=== PATIENT | male | born 1990 | race Caucasian/White ===

== ENCOUNTER 2017-06-08 01:43 | Emergency (ER) | payer BC, MEDICAID, OTHER ==
--- NOTE | 2017-06-08 02:07 | C.PDOC ---
History Of Present Illness 26 year old male who presents to the ER with a complaint of chest pain since 22: 00. Patient states it feels like "anxiety" and a "panic attack"; he reports he was at baseline before the onset. Denies fever or other complaints. no sob, n/v , abdominal pain, cough, ear pain, urinary changes. Time Seen by Provider: 06/08/17 01:56 Chief Complaint (Nursing): Chest Pain History Per: Patient History/Exam Limitations: no limitations Onset/Duration Of Symptoms: Hrs Current Symptoms Are (Timing): Still Present Associated Symptoms: denies: Nausea, Dyspnea Modifying Factors: None Exacerbating Factors: None Alleviating Factors: None Recent travel outside of the [place]: No Past Medical History Reviewed: Historical Data, Nursing Documentation, Vital Signs Vital Signs: Last Vital Signs Temp 98 F 06/08/17 04:15 Pulse 88 06/08/17 04:15 Resp 20 06/08/17 04:15 BP 126/73 06/08/17 04:15 Pulse Ox 96 06/08/17 04:15 - Medical History PMH: Sleep Apnea Surgical History: No Surg Hx Family History: States: Unknown Family Hx - Social History Hx Alcohol Use: Yes Hx Substance Use: No - Immunization History Hx Tetanus Toxoid Vaccination: Yes Hx Influenza Vaccination: No Hx Pneumococcal Vaccination: No Review Of Systems Constitutional: Negative for: Fever, Chills Cardiovascular: Positive for: Chest Pain Gastrointestinal: Negative for: Nausea, Vomiting, Diarrhea Psych: Positive for: Anxiety Physical Exam - Physical Exam Appears: Non-toxic Skin: Normal Color, Warm, Dry Head: Atraumatic, Normacephalic Oral Mucosa: Moist Chest: Symmetrical, No Tenderness Cardiovascular: Rhythm Regular, No Murmur Respiratory: Normal Breath Sounds, No Rales, No Rhonchi, No Wheezing Gastrointestinal/Abdominal: Soft, No Tenderness Neurological/Psych: Oriented x3, Normal Speech, Normal Cognition ED Course And Treatment - Laboratory Results Result Diagrams: 06/08/17 02:09 06/08/17 02:09 ECG: Interpreted By Me, Viewed By Me ECG Rhythm: Sinus Rhythm Interpretation Of ECG: No ST/T wave changes, PERC negative. Rate From EC O2 Sat by Pulse Oximetry: 97 Medical Decision Making Medical Decision Making: atypical cp - will eval for anemia, pe (dimer), pneumonia - labs imaging pending Plan: * EKG * Blood work * CXR * Ativan * 250 pt sleeping in nad. cxr neg as read by me. ua pending. non specific leukocytosis. abd soft no ttp. 350: pt reasssed. staets pain resolved. asking for d/c. dimer neg. cxr neg as read by me. pt denies cough. non specific leukocytosis. advised to f/u outpt, return precautions advised. beside echo, no pericardial effusion. no rub heard. Disposition - Disposition Referrals: [facility] [Outside] [facility] [Outside] [facility] [Outside] Evelio Nunn MD [Staff Provider] - Disposition: HOME/ ROUTINE Disposition Time: 03:51 Condition: STABLE Additional Instructions: please follow up with your doctor/specialist. return to er with worsening symptoms. your white blood cell count was elevated in the ER (15). you need to have this test repeated, or return to er with worsneing symptoms or concerns, fever, or any signs of infection. Instructions: Chest Pain (ED), Leukocytosis (ED) Forms: [employer] ([place]) - Clinical Impression Clinical Impression: Chest pain, Leukocytosis - Scribe Statement The provider has reviewed the documentation as recorded by the Scribe John Boateng All medical record entries made by the Scribe were at my direction and personally dictated by me. I have reviewed the chart and agree that the record accurately reflects my personal performance of the history, physical exam, medical decision making, and the department course for this patient. I have also personally directed, reviewed, and agree with the discharge instructions and disposition.
[2017-06-08 02:14] LABS: BASO # 0.1 K/uL (0.0-0.2); BASO % 0.8 % (0.0-2.0); EOS # 0.2 K/uL (0.0-0.7); EOS % 1.4 % (0.0-4.0); HEMOGLOBIN 15.3 g/dL (12.0-18.0); LYMPH # 3.2 K/uL (1.0-4.3); LYMPH % 20.5 % (20.0-40.0); MEAN CELL VOLUME 87.4 fL (80.0-94.0); MEAN CORPUSCULAR HEMOGLOBIN 29.4 pg (27.0-31.0); MEAN CORPUSCULAR HGB CONC 33.6 g/dL (33.0-37.0); MEAN PLATELET VOLUME 9.4 fL (7.2-11.7); MONO # 1.2 K/uL (0.0-0.8); MONO % 7.5 % (0.0-10.0); NEUT # 10.8 K/uL (1.8-7.0); NEUT % 69.8 % (50.0-75.0); RBC 5.19 Mil/uL (4.40-5.90); RED CELL DISTRIBUTION WIDTH 13.6 % (11.5-14.5); WHITE BLOOD COUNT 15.4 K/uL (4.8-10.8)
[2017-06-08 02:26] LABS: PROTHROMBIN TIME 11.1 SECONDS (9.7-12.2)
[2017-06-08 02:32] LABS: ALBUMIN 4.1 g/dL (3.5-5.0)
[2017-06-08 02:35] LABS: GFR AFRICAN-AMERICAN > 60; GFR NON-AFRICAN AMERICAN > 60
[2017-06-08 02:36] LABS: ALB/GLOB RATIO 1.3 (1.0-2.1); ALT/SGPT 67 U/L (21-72); BLOOD UREA NITROGEN 15 mg/dL (9-20); CALCIUM 8.7 mg/dl (8.6-10.4)
[2017-06-08 02:41] LABS: AST/SGOT 46 U/L (17-59)
[2017-06-08 03:21] LABS: URINE BILIRUBIN NEGATIVE (NEGATIVE); URINE BLOOD NEGATIVE (NEGATIVE); URINE CLARITY Clear (Clear); URINE COLOR Yellow (YELLOW); URINE GLUCOSE (UA) NORMAL (Normal); URINE LEUKOCYTE ESTERASE NEG Leu/uL (Negative); URINE NITRATE NEGATIVE (NEGATIVE); URINE PROTEIN NEGATIVE (NEGATIVE); URINE UROBILINOGEN NORMAL mg/dL (0.2-1.0)
[2017-06-08 04:17] VITALS: BP 126/73; PULSE 88; RESP 20; TEMP 98
--- NOTE | 2017-06-08 08:51 | RAD ---
HISTORY: chest pain COMPARISON: TheNo prior. TECHNIQUE: Chest PA and lateral FINDINGS: LUNGS: No active pulmonary disease. PLEURA: No significant pleural effusion identified. No pneumothorax apparent. CARDIOVASCULAR: Normal. OSSEOUS STRUCTURES: No significant abnormalities. VISUALIZED UPPER ABDOMEN: Normal. OTHER FINDINGS: None. IMPRESSION: No active disease.
[2017-06-08 19:20] VITALS: O2SAT 97
== END 2017-06-08 04:15 | disposition home or self-care (01) ==
LOC: C.ER 01:43
DX: R07.89 Other chest pain (principal); D72.829 Elevated white blood cell count, unspecified
CPT/HCPCS: 71020; 80053; 81001; 84484; 85025; 85378; 85610; 85730; 96374; 96375; 99284; J1885; J2060